=== PATIENT | female | born 1995 | race Caucasian/White ===

== ENCOUNTER 2016-05-17 15:59 | Inpatient (IN) | payer OTHER ==
[~2016-05-17] VITALS: Ht 157.5 cm; Wt 49.4 kg
[2016-05-17 17:57] LABS: BASOPHILS # (AUTO) 0.02 K/uL (0.00-0.20); BASOPHILS % (AUTO) 0.2 % (0.0-2.0); EOSINOPHILS # (AUTO) 0.09 K/uL (0.00-0.70); EOSINOPHILS % (AUTO) 0.76 % (1.0-6.0); HEMATOCRIT 42.7 % (36-46); HEMOGLOBIN 14.1 g/dL (12.0-16.0); LYMPHOCYTES # (AUTO) 2.1 K/uL (1.0-4.8); LYMPHOCYTES % (AUTO) 18.2 % (22.0-44.0); MEAN CORPUSCULAR HEMOGLOBIN 31.2 pg (26.0-34.0); MEAN CORPUSCULAR HGB CONC 33.1 G/dL (31.0-37.0); MEAN CORPUSCULAR VOLUME 94 fL (80-100); MONOCYTES # (AUTO) 0.6 K/uL (0.1-1.0); MONOCYTES % (AUTO) 4.9 % (2.0-9.0); NEUTROPHILS # (AUTO) 8.9 K/uL (1.8-7.7); PLATELET COUNT (AUTO) 236 K/uL (150-450); RED BLOOD CELL COUNT(AUTO) 4.52 MIL/uL (4.00-5.20); RED CELL DISTRIBUTION WIDTH 12.4 % (11.5-14.5); WHITE BLOOD COUNT (AUTO) 11.7 K/uL (4.5-11.0)
[2016-05-17 18:36] LABS: ANION GAP 9 mmol/L (8-16); CALCIUM, TOTAL 9.5 mg/dL (8.8-10.5); CARBON DIOXIDE 29 mmol/L (22-29); CHLORIDE 98 mmol/L (98-107); CREATININE 0.58 mg/dL (0.60-1.30); GLOMERULAR FILTR. RATE CALC > 60 mL/min (>60); POTASSIUM 4.5 mmol/L (3.5-5.1); SODIUM SERUM 136 mmol/L (136-145); UREA NITROGEN, BLOOD 10 mg/dL (7-18)
[2016-05-17 18:38] LABS: ALANINE AMINOTRANSFERASE 17 U/L (12-78); ALBUMIN 4.2 g/dL (3.4-5.0); ASPARTATE AMINOTRANSFERASE 13 U/L (15-37); BILIRUBIN,TOTAL 0.6 mg/dL (0.1-1.0); TOTAL PROTEIN, SERUM 7.9 g/dL (6.4-8.2)
[2016-05-17 20:23] LABS: APPEARANCE,URINE CLEAR (CLEAR); GLUCOSE, URINE (UA) NEGATIVE (NEGATIVE); KETONES,URINE NEGATIVE (NEGATIVE); LEUKOCYTE ESTERASE ,URINE NEGATIVE (NEGATIVE); OCCULT BLOOD,URINE NEGATIVE (NEGATIVE); PH,URINE 7.5 (5.0-8.0); PROTEIN,URINE NEGATIVE (NEGATIVE)
[2016-05-17 20:25] LABS: ADD UA MICROSCOPIC NO
[2016-05-17] MEDS ORDERED: ONDANSETRON HCL 4 MG TABLET PO ONE (20:30)
[2016-05-17] MEDS ORDERED: ACETAMINOPHEN 500 MG TABLET PO ONE (22:15)
[2016-05-17] MEDS ORDERED: LORazepam 2 MG TABLET PO ONE (22:15)
[2016-05-18] VITALS (11 sets, daily range): BP systolic 90–120; BP diastolic 58–83
[2016-05-18] MEDS ORDERED: CloNIDine HCL 0.1 MG TABLET PO PRN (00:45)
[2016-05-18] MEDS ORDERED: HALOPERIDOL 5 MG TABLET PO PRN (00:45)
[2016-05-18] MEDS ORDERED: PROMETHAZINE HCL 25 MG/ML VIAL IM PRN (00:45)
[2016-05-18] MEDS ORDERED: MAG HYDROX/AL HYDROX/SIMETH ES 30 ML SUSPENSION UDCUP PO PRN (00:45)
[2016-05-18] MEDS ORDERED: HydrOXYzine PAMOATE 50 MG CAPSULE PO PRN (00:45)
[2016-05-18] MEDS ORDERED: ZOLPIDEM TARTRATE 10 MG TABLET PO PRN (00:45)
[2016-05-18] MEDS ORDERED: IBUPROFEN 600 MG TABLET PO PRN (00:45)
[2016-05-18] MEDS ORDERED: LORazepam 2 MG TABLET PO PRN (00:45)
[2016-05-18] MEDS: CloNIDine HCL 0.1 MG TABLET PO SCH ×4 (06:00→21:08)
[2016-05-19 00:10] VITALS: BP 119/89
[2016-05-19 04:00] VITALS: BP 115/85
[2016-05-19 06:00] VITALS: BP 119/79
[2016-05-19] MEDS: CloNIDine HCL 0.1 MG TABLET PO SCH ×3 (06:12→17:23)
[2016-05-19 08:05] VITALS: BP 96/60
[2016-05-19] MEDS ORDERED: DULoxetine HCL 60 MG CAPSULE PO SCH (09:00)
[2016-05-19 14:12] VITALS: BP 92/56
[2016-05-19 16:00] VITALS: BP 107/77
[2016-05-19] MEDS ORDERED: DULO60CA44 PO (16:04)
== END 2016-05-19 17:40 | disposition home or self-care (01) | DRG 885 ==
LOC: EMS 16:02 → 3EX 05-18 03:02
PROVIDERS: ADMIT Psychiatry & Neurology Psychiatry; ATTEND Psychiatry & Neurology Psychiatry
DX: F33.2 Major depressive disorder, recurrent severe without psychotic features (principal); F11.20 Opioid dependence, uncomplicated; F60.3 Borderline personality disorder; D72.829 Elevated white blood cell count, unspecified; Z91.5 Personal history of self-harm; Z71.51 Drug abuse counseling and surveillance of drug abuser
CPT/HCPCS: 99285; Q0162